=== PATIENT | male | born 1980 | race Hispanic/Latino ===

== ENCOUNTER 2018-10-12 12:37 | Emergency (ER) | payer OTHER ==
[~2018-10-12] VITALS: Ht 167.6 cm; Wt 70.0 kg
[2018-10-12] MEDS ORDERED: TORADOL PO (13:41)
[2018-10-12 13:47] VITALS: BP 123/88
== END 2018-10-12 14:06 | disposition home or self-care (01) | DRG 605 ==
LOC: ED 12:37
DX: S90.32XA Contusion of left foot, initial encounter (principal); S90.812A Abrasion, left foot, initial encounter; V04.00XA Pedestrian on foot injured in collision with heavy transport vehicle or bus in nontraffic accident, initial encounter; Y93.89 Activity, other specified; Y99.0 Civilian activity done for income or pay; Y92.89 Other specified places as the place of occurrence of the external cause